=== PATIENT | female | born 1950 | race American Indian/Alaskan Native ===

== ENCOUNTER 2020-03-30 15:36 | Emergency (ER) | payer MEDICARE ==
--- NOTE | 2020-03-30 18:22 | Emergency Department Report ---
Blank Doc - Documentation Documentation: 69-year-old diabetic female with wound to her bottom presents emerge department complaining of hyperglycemia and possible worsening wound infection This initial assessment/diagnostic orders/clinical plan/treatment(s) is/are subject to change based on patients health status, clinical progression and re- assessment by fellow clinical providers in the ED. Further treatment and workup at subsequent clinical providers discretion. Patient/guardian urged not to elope from the ED as their condition may be serious if not clinically assessed and managed. Initial orders include: Plan labs and evaluate the wound for further treatment
[2020-03-30 18:42] LABS: Hematocrit 41.3 % (30.3-42.9); Hemoglobin 13.5 gm/dl (10.1-14.3); Mean Corpuscular HGB Conc 33 % (30-34); Mean Corpuscular Volume 85 fl (79-97); Platelet Count 151 K/mm3 (140-440); Red Blood Count 4.83 M/mm3 (3.65-5.03); Red Cell Distribution Width 13.5 % (13.2-15.2)
[2020-03-30 18:53] LABS: BUN/Creatinine Ratio 16; Blood Urea Nitrogen 13 mg/dL (7-17); Calcium 9.7 mg/dL (8.4-10.2); Hemolysis Index 14
[2020-03-30] MEDS ORDERED: FAMOTIDINE 20 MG/2 ML INJ IV ONE (19:48)
[2020-03-30] MEDS ORDERED: SODIUM CHLORIDE 0.9% 1000 ML 1,000 ML IV ONE (19:48)
[2020-03-30] MEDS ORDERED: ONDANSETRON 4 MG/2 ML INJ IV ONE (19:48)
[2020-03-30 20:28] LABS: Alanine Aminotransferase 8 units/L (7-56); Albumin 4.2 g/dL (3.9-5)
[2020-03-30 20:32] LABS: Bilirubin,Direct < 0.2 mg/dL (0-0.2)
--- NOTE | 2020-03-30 20:42 | XRay Report ---
XR chest 1V ap INDICATION / CLINICAL INFORMATION: weakness. COMPARISON: None available. FINDINGS: SUPPORT DEVICES: None. HEART /PULMONARY VASCULATURE: No significant abnormality. LUNGS / PLEURA: No significant pulmonary or pleural abnormality. No pneumothorax. ADDITIONAL FINDINGS: No significant additional findings. IMPRESSION: 1. No acute findings. Signer Name: Primo Epstein MD Signed: 03/30/2020 8:38 PM Workstation Name: [id number]
[2020-03-30 21:27] LABS: Bilirubin,Urine NEG (Negative); Blood,Urine NEG (Negative); Color,Urine Amber (Yellow); Mucus,Urine FEW /HPF; Protein,Urine <15 mg/dL mg/dL (Negative); Urobilinogen,Urine < 2.0 mg/dL (<2.0)
--- NOTE | 2020-03-30 22:32 | Emergency Department Report ---
ED General Adult HPI - General Chief complaint: Weakness Stated complaint: HIGH SUGAR LEVELS Source: patient Mode of arrival: Ambulatory Limitations: No Limitations - History of Present Illness Initial comments: Patient is a 69-year-old -[place] female with a history of hypertension, uuy-xypqymm-gvgeserbb diabetes and hyperlipidemia who presents to the ED with complaints of generalized fatigue, lack of appetite and generalized weakness for the last 2 weeks. Patient states that she initially developed some abscess in the buttocks which was treated with antibiotics and subsequently she also developed UTI and Tana vaginitis which were also ultimately treated. Patient states that these medications made her have no appetite leading to her generalized weakness for the last 2 weeks especially worse in the last 5 days. Patient states however that she has been trying to drink fluids but still feels weak and tired. Patient states that she came to the ED suspecting that the symptoms may be due to her poorly controlled diabetes. Patient denies chest pain, shortness of breath, dizziness, syncope, change in vision, dysuria, urinary frequency and urgency, abdominal pain, nausea, vomiting, diarrhea, fever and chills. MD Complaint: Generalized fatigue, generalized weakness, hyperglycemia -: Gradual, week(s) (2) Radiation: non-radiation Severity scale (0 -10): 0 Quality: dull Consistency: constant Improves with: none Worsens with: none Associated Symptoms: denies other symptoms, loss of appetite, malaise, weakness. denies: confusion, chest pain, cough, diaphoresis, fever/chills, headaches, nausea/vomiting, rash, seizure, shortness of breath, syncope Treatments Prior to Arrival: none - Related Data Previous Rx's Medication Instructions Recorded Last Taken Type Fluconazole (Nf) [Diflucan TAB] 150 mg PO ONCE #1 tablet 05/09/15 Unknown Rx Prednisone [predniSONE 10 mg 10 mg PO .TAPER #1 tab.ds.pk 05/09/15 Unknown Rx (6-Day Pack, 21 Tabs)] hydrOXYzine PAMOATE [Vistaril] 25 mg PO Q6HR PRN #20 capsule 05/09/15 Unknown Rx Ondansetron [Zofran Odt] 4 mg PO Q6HR PRN #15 tab.rapdis 03/30/20 Unknown Rx Allergies Allergy/AdvReac Type Severity Reaction Status Date / Time Sulfa (Sulfonamide Allergy Hives Unverified 07/03/13 09:04 Antibiotics) ED Review of Systems ROS: Stated complaint: HIGH SUGAR LEVELS Other details as noted in HPI Constitutional: malaise, weakness. denies: chills, fever Eyes: denies: eye pain, eye discharge, vision change ENT: denies: ear pain, throat pain Respiratory: denies: cough, shortness of breath, wheezing Cardiovascular: denies: chest pain, palpitations Endocrine: no symptoms reported Gastrointestinal: denies: abdominal pain, nausea, vomiting, diarrhea Genitourinary: denies: urgency, dysuria, discharge Musculoskeletal: denies: back pain, joint swelling, arthralgia Skin: denies: rash, lesions Neurological: denies: headache, weakness, paresthesias Psychiatric: denies: anxiety, depression Hematological/Lymphatic: denies: easy bleeding, easy bruising ED Past Medical Hx - Past Medical History Previous Medical History?: Yes Hx Hypertension: Yes Hx Diabetes: Yes Additional medical history: Hyperlipidemia - Surgical History Past Surgical History?: Yes Additional Surgical History: tubal ligation - Social History Smoking Status: Never Smoker Substance Use Type: None - Medications Home Medications: Home Medications Medication Instructions Recorded Confirmed Last Taken Type Fluconazole (Nf) [Diflucan TAB] 150 mg PO ONCE #1 tablet 05/09/15 Unknown Rx Prednisone [predniSONE 10 mg 10 mg PO .TAPER #1 tab.ds.pk 05/09/15 Unknown Rx (6-Day Pack, 21 Tabs)] hydrOXYzine PAMOATE [Vistaril] 25 mg PO Q6HR PRN #20 capsule 05/09/15 Unknown Rx Ondansetron [Zofran Odt] 4 mg PO Q6HR PRN #15 tab.rapdis 03/30/20 Unknown Rx ED Physical Exam - General Limitations: No Limitations General appearance: alert, in no apparent distress - Head Head exam: Present: atraumatic, normocephalic, normal inspection - Eye Eye exam: Present: normal appearance, PERRL, EOMI Pupils: Present: normal accommodation - ENT ENT exam: Present: normal exam, normal orophraynx, mucous membranes moist, TM's normal bilaterally, normal external ear exam - Neck Neck exam: Present: normal inspection, full ROM - Respiratory Respiratory exam: Present: normal lung sounds bilaterally. Absent: respiratory distress, wheezes, rales, stridor, chest wall tenderness, accessory muscle use, decreased breath sounds, prolonged expiratory - Cardiovascular Cardiovascular Exam: Present: normal rhythm, tachycardia, normal heart sounds. Absent: systolic murmur, diastolic murmur, rubs, gallop - GI/Abdominal GI/Abdominal exam: Present: soft, normal bowel sounds. Absent: tenderness, guarding, rebound, hyperactive bowel sounds, hypoactive bowel sounds - Extremities Exam Extremities exam: Present: normal inspection, full ROM, normal capillary refill - Back Exam Back exam: Present: normal inspection, full ROM. Absent: tenderness, CVA tende rness (R), CVA tenderness (L), muscle spasm, paraspinal tenderness, vertebral tenderness - Neurological Exam Neurological exam: Present: alert, oriented X3, CN II-XII intact, normal gait, reflexes normal - Psychiatric Psychiatric exam: Present: normal affect, normal mood - Skin Skin exam: Present: warm, dry, intact, normal color. Absent: rash ED Course Vital Signs 03/30/20 16:10 Temperature 99.0 F Pulse Rate 104 H Respiratory 18 Rate Blood Pressure 111/72 [Right] O2 Sat by Pulse 96 Oximetry ED Medical Decision Making - Lab Data Result diagrams: 03/30/20 18:24 03/30/20 18:24 - Radiology Data Findings [facility] [address] [place] [address] XRay Report Signed Patient: MARIA ESTHER HENDRICKS MR#: [id number] : 1950 Acct:[id number] Age/Sex: 69 / F ADM Date: 03/30/20 Loc: ED Attending Dr: Ordering Physician: VOLODYMYR HOWARD Date of Service: 03/30/20 Procedure(s): XR chest 1V ap Accession Number(s): [id number] cc: VOLODYMYR HOWARD Fluoro Time In Minutes: XR chest 1V ap INDICATION / CLINICAL INFORMATION: weakness. COMPARISON: None available. FINDINGS: SUPPORT DEVICES: None. HEART /PULMONARY VASCULATURE: No significant abnormality. LUNGS / PLEURA: No significant pulmonary or pleural abnormality. No pneumot horax. ADDITIONAL FINDINGS: No significant additional findings. IMPRESSION: 1. No acute findings. Signer Name: Harvinder Epstein MD Signed: 03/30/2020 8:38 PM Workstation Name: [id number] Transcribed By: NOAH Dictated By: HARVINDER EPSTEIN MD Electronically Authenticated By: HARVINDER EPSTEIN MD Signed Date/Time: 03/30/202037 DD/ 37 TD/TT: - Medical Decision Making This is a 69-year-old -[place] female with a history of hypertension, dcp-hbmnidy-zgctggeyg diabetes and hyperlipidemia who presents to the ED with co mplaints of generalized fatigue, lack of appetite and generalized weakness for the last 2 weeks. Patient states that she initially developed some abscess in the buttocks which was treated with antibiotics and subsequently she also developed UTI and Tana vaginitis which were also ultimately treated. Patient states that these medications made her have no appetite leading to her generalized weakness for the last 2 weeks especially worse in the last 5 days. Patient states however that she has been trying to drink fluids but still feels weak and tired. Patient states that she came to the ED suspecting that the symptoms may be due to her poorly controlled diabetes. In the ED, patient is al ert and oriented x3 and is not in distress. Lab test results were reviewed and are all nonactionable. Chest x-ray shows no acute cardiopulmonary abnormalities or pneumonitis. Patient was treated in the ED with normal saline 1 L IV bolus x1, antacids and antiemetics. On reevaluation, patient felt better and was discharged home on antiemetics and advised to follow-up with her primary care physician in 5 to 7 days for reevaluation. Patient was advised to return to the ED immediately if symptoms get worse. - Differential Diagnosis Hyperglycemia; dehydration; viral syndrome; URI; UTI Critical care attestation.: If time is entered above; I have spent that time in minutes in the direct care of this critically ill patient, excluding procedure time. ED Disposition Clinical Impression: Generalized weakness, Other fatigue Disposition: DC-01 TO HOME OR SELFCARE Is pt being admited?: No Does the pt Need Aspirin: No Condition: Stable Instructions: Fatigue, Weakness, [id number] Additional Instructions: All lab test results were reviewed and are all nonactionable. Chest x-ray shows no acute cardiopulmonary abnormalities or pneumonitis. Therefore drink plenty of fluids, take your regular medications and follow-up with your primary care physician in 3 to 5 days for reevaluation. Return to the ED immediately if symptoms get worse. Prescriptions: Ondansetron [Zofran Odt] 4 mg PO Q6HR PRN #15 tab.rapdis PRN Reason: Nausea Referrals: [facility] [Provider Group] - 3-5 Days Time of Disposition: 22:31 Print Language: SAMI
[2020-03-30 23:57] VITALS: BP 114/60
== END 2020-03-30 23:05 | disposition home or self-care (01) ==
LOC: ED 15:36
DX: R53.1 Weakness (principal); R53.83 Other fatigue; I10 Essential (primary) hypertension; E11.9 Type 2 diabetes mellitus without complications; Z88.2 Allergy status to sulfonamides; Z98.51 Tubal ligation status; Z79.899 Other long term (current) drug therapy
CPT/HCPCS: 36415; 71045; 80048; 80076; 81001; 82962; 84484; 85027; 96361; 96374; 96375; 99284; J2405; J7030